=== PATIENT | male | born 1990 | race Caucasian/White ===

== ENCOUNTER 2017-02-18 17:36 | Emergency (ER) | payer BC, SELFPAY ==
[2017-02-18 17:36] VITALS: BMI 22.8
[2017-02-18 17:44] VITALS: RESP 16; TEMP 98.3; O2SAT 96
--- NOTE | 2017-02-18 18:10 | ED PDOC ---
Arrival/HPI - General Historian: Patient - History of Present Illness Time/Duration: < week Symptom Onset: Sudden Symptom Course: Unchanged Quality: Other (vision change ) Severity Level: Moderate Activities at Onset: Rest Context: Home <Candace Urias - Last Filed: 02/18/17 20:23> <Yohana Dsouza - Last Filed: 02/18/17 20:47> - General Chief Complaint: Eye Problem Time Seen by Provider: 02/18/17 17:45 - History of Present Illness Narrative History of Present Illness (Text): 02/18/17 18:06 This is a 26Y M with no significant PMH here for L blurry vision x 4 days. Patient reports he had sudden blurry vision on Thursday. He denies any fever, chills, numbness/tingling, n/v/d, CP or SOB. He denies having any trauma. He saw the plastic hospital products assembler, Dr. Harley today. The patient reports the doctor said the patient should follow up with a neurologist and did not find anything on his eye exam. Patient has an appointment with neurologist Dr. Lopez tomorrow. 02/18/17 18:10 (Candace Urias) Past Medical History - Provider Review Nursing Documentation Reviewed: Yes - Past History Past History: No Previous - Tetanus Immunization Tetanus Immunization: Unknown - Psychiatric Hx Psychophysiologic Disorder: No Hx Depression: No Hx Emotional Abuse: No Hx Physical Abuse: No Hx Substance Use: No - Surgical History Hx Orthopedic Surgery: Yes (R WRIST) - Suicidal Assessment Feels Threatened In Home Enviroment: No <Candace Urias - Last Filed: 02/18/17 20:23> Family/Social History - Physician Review Nursing Documentation Reviewed: Yes Family/Social History: Other (Guillian Fl[place]) Smoking Status: Never Smoked Hx Alcohol Use: Yes Frequency of alcohol use: Socially Hx Substance Use: No <Candace Urias - Last Filed: 02/18/17 20:23> Allergies/Home Meds <Candace Urias - Last Filed: 02/18/17 20:23> <Yohana Dsouza - Last Filed: 02/18/17 20:47> Allergies/Adverse Reactions: Allergies No Known Allergies Allergy (Verified 02/18/17 17:37) Home Medications: Home Meds Medication Instructions Recorded Confirmed No Known Home Med 02/18/17 02/18/17 Review of Systems - Physician Review All systems were reviewed & negative as marked: Yes - Review of Systems Constitutional: Normal. absent: Fevers, Night Sweats Eyes: Vision Changes ENT: Normal. absent: Hearing Changes, Tinnitus, Rhinorrhea Respiratory: Normal. absent: SOB, Cough Cardiovascular: Normal. absent: Chest Pain, Palpitations Gastrointestinal: Normal. absent: Abdominal Pain, Constipation, Diarrhea, Nausea, Vomiting Musculoskeletal: Normal. absent: Arthralgias, Back Pain Skin: Normal. absent: Rash, Pruritis, Skin Lesions Neurological: Normal. absent: Headache, Dizziness, Focal Weakness, Speech Changes, Facial Droop, Seizure Endocrine: Normal. absent: Diaphoresis, Polyuria Psychiatric: Normal. absent: Anxiety, Depression <Candace Urias - Last Filed: 02/18/17 20:23> Physical Exam Vital Signs Reviewed: Yes Temperature: Afebrile Blood Pressure: Normal Pulse: Regular Respiratory Rate: Normal Appearance: Positive for: Well-Appearing, Non-Toxic, Comfortable Pain Distress: None Mental Status: Positive for: Alert and Oriented X 3 - Systems Exam Head: Present: Atraumatic, Normocephalic Pupils: Present: PERRL Extroacular Muscles: Present: EOMI Conjunctiva: Present: Normal Mouth: Present: Moist Mucous Membranes Neck: Present: Normal Range of Motion Respiratory/Chest: Present: Clear to Auscultation, Good Air Exchange. No: Respiratory Distress, Accessory Muscle Use Cardiovascular: Present: Regular Rate and Rhythm, Normal S1, S2. No: Murmurs Abdomen: Present: Normal Bowel Sounds. No: Tenderness, Distention, Peritoneal Signs Upper Extremity: Present: Normal Inspection. No: Cyanosis, Edema Lower Extremity: Present: Normal Inspection. No: Edema Neurological: Present: GCS=15, CN II-XII Intact, Speech Normal, Motor Func Grossly Intact, Normal Sensory Function Skin: Present: Warm, Dry, Normal Color. No: Rashes Psychiatric: Present: Alert, Oriented x 3, Normal Insight, Normal Concentration <Candace Urias - Last Filed: 02/18/17 20:23> <Yohana Dsouza - Last Filed: 02/18/17 20:47> Vital Signs Temp Pulse Resp BP Pulse Ox 02/18/17 20:35 80 16 110/65 96 02/18/17 17:37 98.3 F 84 16 105/68 96 Medical Decision Making Re-evaluation Time: 20:39 Reassessment Condition: Unchanged - RAD Interpretation Fine Artist: Radiologist <Candace Urias - Last Filed: 02/18/17 20:23> <Yohana Dsouza - Last Filed: 02/18/17 20:47> ED Course and Treatment: 02/18/17 18:15 Impression: This is a 26Y M with no PMH here for sudden L eye blurry vision x 4 days. Patient saw plastic hospital products assembler, Dr. Pickens today who referred patient to neurologist, Dr. Lopez. DDX: Multiple sclerosis, Stroke, pituitary lesion Plan: -- MRI brain --Reassess Progress Note: Spoke with Dr. Pickens who reports patient has visual acuity of 20/20 on R and 40/20 on L. He saw no acute abnormalities on the eye exam and believes it can be a possible pituitary lesion. MRI showed white matter changes which suggests multiple sclerosis. Spoke with Dr. Lopez who would like patient to follow up with him for his scheduled appointment tomorrow. Prior Visits: Notes and results from previous visits were reviewed. Discharge Instructions: Re-evaluation. Patient feels better. Discussed results and plan with patient who expresses understanding. All questions answered and there is agreement with the plan to discharge home with instructions. Patient stable for discharge. Return if symptoms persist or worsen. (Candace Urias) A 26 year old male with blurry vision in left eye. In agreement with resident note, which includes further HPI details. Patient was seen and evaluated with resident, came up with plan and treatment together. 02/18/17 20:45 Patient was already seen by Dr. Pickens, who discussed the case with neurology , Dr. Lopez and has an appt tomorrow. Patient came to the ED out of concern; remainder of neuro exam was normal. MRI of the brain done showing demyelinating process. Resident discussed case with Dr. Lopez who said to have him follow up with him tomorrow and to hold on admission for possible high dose iv steroids for possible MS. (Yohana Dsouza) - RAD Interpretation Narrative RAD Interpretations (Text): 02/18/17 20:41 EXAM: MR Head Without Intravenous Contrast CLINICAL HISTORY: 26 years old, male; Signs and symptoms; Visual disturbance; Patient HX: No trauma. Blurry vision in left eye x almost 1 week. R/O ms. ; Additional info: Blurry vision, R/O ms TECHNIQUE: Magnetic resonance images of the head/brain without intravenous contrast in multiple planes. COMPARISON: No relevant prior studies available. FINDINGS: Brain: Innumerable bilateral supratentorial white matter lesions including foci in a corpus callosum, midbrain, daniela, brachium pontis, medulla, superior cerebellar peduncles and cerebellar white matter somewhat fluidlike areas of abnormal signal in the temporal parietal occipital white matter bilaterally. Many of the lesions are low in signal on T1-weighted images. No acute hemorrhage. No acute infarct. Normal major arterial intracranial flow voids. Ventricles: No hydrocephalus. Bones/joints: Unremarkable. Sinuses: Unremarkable as visualized. No acute sinusitis. Mastoid air cells: Unremarkable as visualized. No mastoid effusion. Orbits: Possible elevated T2 signal within the left optic nerve. IMPRESSION: Extensive white matter signal abnormalities compatible with a demyelinating process including but not limited to multiple sclerosis. (Candace Urias) Radiology Orders: 02/18/17 17:49 BRAIN WITHOUT CONTRAST [MRI] Stat <Candace Urias - Last Filed: 02/18/17 20:23> - PA / [employer] / Resident Statement / has reviewed & agrees with the documentation as recorded. / has examined the patient and agrees with the treatment plan. - Scribe Statement The provider has reviewed the documentation as recorded by the Scribe <Yohana Dsouza - Last Filed: 02/18/17 20:47> - Scribe Statement Lachelle Valentino Provider Scribe Attestation: All medical record entries made by the Scribe were at my direction and personally dictated by me. I have reviewed the chart and agree that the record accurately reflects my personal performance of the history, physical exam, medical decision making, and the department course for this patient. I have also personally directed, reviewed, and agree with the discharge instructions and disposition. (Yohana Dsouza) Disposition/Present on Arrival - Present on Arrival Any Indicators Present on Arrival: No History of DVT/PE: No History of Uncontrolled Diabetes: No Urinary Catheter: No History of Decub. Ulcer: No History Surgical Site Infection Following: None - Disposition Have Diagnosis and Disposition been Completed?: Yes Disposition Time: 20:23 Patient Plan: Discharge <Suman Uriasystal - Last Filed: 02/18/17 20:23> <LiannaYohana - Last Filed: 02/18/17 20:47> - Disposition Diagnosis: Demyelinating changes in brain, Vision blurred Disposition: HOME/ ROUTINE Condition: FAIR Print Language: MALAYSIAN Additional Instructions: Mr. Guerrero, thank you for letting us take care of you today. Your provider was Dr. Urias. You were treated for vision changes. The emergency medical care you received today was directed at your acute symptoms. If you were prescribed any medication, please fill it and take as directed. It may take several days for your symptoms to resolve. Return to the Emergency Department if your symptoms worsen, do not improve, or if you have any other problems. Please contact your doctor or call one of the physicians/clinics you have been referred to that are listed on the Patient Visit Information form that is included in your discharge packet. Bring any paperwork you were given at discharge with you along with any medications you are taking to your follow up visit. Our treatment cannot replace ongoing medical care by a primary care provider (PCP) outside of the emergency department. Thank you for allowing the [facility] [employer] team to be part of your care today. If you had an X-Ray or CT scan: A Radiologist will review the ED reading if any change in treatment is needed we will contact you. Please follow up with Dr. Lopez tomorrow at 12:30pm. Please follow up with primary care doctor in 1 week. Referrals: Silviano Lopez MD [Staff Provider] - Follow up with primary Regis Pickens MD [Staff Provider] - Follow up with primary [facility] [Outside] - Follow up with primary [facility] [Outside] - Follow up with primary Forms: WORK NOTE
[2017-02-18 20:36] VITALS: BP 110/65; PULSE 80
--- NOTE | 2017-02-19 07:51 | MRI ---
PROCEDURE: MRI BRAIN WITHOUT CONTRAST HISTORY: blurry vision, r/o MS COMPARISON: None. TECHNIQUE: Multiplanar, multisequence MR images of the brain were obtained without intravenous contrast enhancement. FINDINGS: HEMORRHAGE: None DWI: No evidence of an acute or early subacute infarction. BRAIN PARENCHYMA: No mass effect or edema. Innumerable bilateral supratentorial white matter lesions involving the corpus callosum, midbrain, daniela, brachium pontis, medulla and superior cerebellar peduncles cerebellar white matter, as well as abnormal signal in the temporal parietal and occipital white matter bilaterally. VENTRICLES: Unremarkable. No hydrocephalus. CRANIUM: Unremarkable. ORBITS: Grossly unremarkable. PARANASAL SINUSES/MASTOIDS: Clear VASCULAR SYSTEM: Skull base flow voids intact. OTHER FINDINGS: None. IMPRESSION: Extensive white matter signal abnormalities compatible with demyelinating process including but not limited to multiple sclerosis
== END 2017-02-18 20:37 | disposition home or self-care (01) ==
LOC: ED 17:36
DX: H53.8 Other visual disturbances (principal); G93.89 Other specified disorders of brain

== ENCOUNTER 2017-02-21 01:36 | Emergency (ER) | payer BC ==
[2017-02-21 01:45] VITALS: BMI 23.4
[2017-02-21 01:49] VITALS: BP 142/84; PULSE 90; TEMP 97.6
--- NOTE | 2017-02-21 02:23 | ED PDOC ---
Arrival/HPI - General Chief Complaint: Medical Clearance Time Seen by Provider: 02/21/17 01:43 Historian: Patient - History of Present Illness Narrative History of Present Illness (Text): 02/21/17 02:10 A 26 year old male, whose past medical history includes MS, presents to the emergency department complaining of hiccups lasting about 2 hours. Patient reports no modifying factors. Patient notes hiccups stopped for about 15 minutes , but then developed again. Patient does not currently have the hiccups and notes never hiccups like this in the past. Patient was recently diagnosed with MS by neurologist Dr. Lopez. Patient was given IV steroid treatment on and second treatment yesterday. Patient reported blurry vision on Thursday but notes some improvement. Patient denies any other complaints at this time. Time/Duration: 4-6 hours Symptom Onset: Sudden Symptom Course: Improving Activities at Onset: Rest Modifying Factors (Text): none Context: Home Past Medical History - Provider Review Nursing Documentation Reviewed: Yes - Past History Past History: No Previous - Tetanus Immunization Tetanus Immunization: Unknown - Cardiac Hx Cardiac Disorders: No - Pulmonary Hx Respiratory Disorders: No - Neurological Hx Multiple Sclerosis: Yes - HEENT Hx HEENT Disorder: No - Renal Hx Renal Disorder: No - Endocrine/Metabolic Hx Endocrine Disorders: No - Hematological/Oncological Hx Blood Disorders: No - Integumentary Hx Dermatological Disorder: No - Musculoskeletal/Rheumatological Hx Musculoskeletal Disorders: No - Gastrointestinal Hx Gastrointestinal Disorders: No - Genitourinary/Gynecological Hx Genitourinary Disorders: No - Psychiatric Hx Psychophysiologic Disorder: No Hx Depression: No Hx Emotional Abuse: No Hx Physical Abuse: No Hx Substance Use: No - Surgical History Hx Orthopedic Surgery: Yes (R WRIST) - Anesthesia Hx Anesthesia: No - Suicidal Assessment Feels Threatened In Home Enviroment: No Family/Social History - Physician Review Nursing Documentation Reviewed: Yes Family/Social History: No Known Family HX Smoking Status: Never Smoked Hx Alcohol Use: Yes Hx Substance Use: No Allergies/Home Meds Allergies/Adverse Reactions: Allergies No Known Allergies Allergy (Verified 02/21/17 01:45) Home Medications: Home Meds Medication Instructions Recorded Confirmed No Known Home Med 02/18/17 02/18/17 Review of Systems - Physician Review All systems were reviewed & negative as marked: Yes - Review of Systems Constitutional: Other (hiccups). absent: Fevers Respiratory: absent: SOB Cardiovascular: absent: Chest Pain Musculoskeletal: absent: Back Pain, Neck Pain Physical Exam - Physical Exam Narrative Physical Exam (Text): 02/21/17 03:19 Constitutional: No acute distress. Head: Normocephalic. Atraumatic. Eyes: PERRL. ENT: Moist mucous membranes. Neck: Supple. Cardiovascular: Regular rate. Chest: No tenderness. Respiratory: Clear to auscultation bilaterally. GI: Soft. Nontender. Nondistended. Back: No CVA tenderness. Musculoskeletal: No tenderness or swelling of extremities. Skin: No rash. Neurologic: Alert, no focal deficit. Vital Signs Reviewed: Yes Vital Signs Temp Pulse Resp BP Pulse Ox 02/21/17 02:29 16 98 02/21/17 01:47 97.6 F 90 17 142/84 100 Temperature: Afebrile Blood Pressure: Normal Pulse: Regular Respiratory Rate: Normal Appearance: Positive for: Well-Appearing, Non-Toxic, Comfortable Pain Distress: None Mental Status: Positive for: Alert and Oriented X 3 Medical Decision Making ED Course and Treatment: 02/21/17 02:30 Impression: A 26 year old male with hiccups. Plan: -- Reassess and disposition Prior Visits: Notes and results from previous visits were reviewed. Progress Notes: On re-evaluation, patient feels better and is in no acute distress. I have discussed the results and plan with the patient, who expresses understanding. Patient in agreement with plan to be discharged home. Patient is stable for discharge. Patient was instructed to follow up with physician and neurologist or return if symptoms worsen or new concerning symptoms arise. - Scribe Statement The provider has reviewed the documentation as recorded by the Pili Barber Provider Scribe Attestation: All medical record entries made by the Pili were at my direction and personally dictated by me. I have reviewed the chart and agree that the record accurately reflects my personal performance of the history, physical exam, medical decision making, and the department course for this patient. I have also personally directed, reviewed, and agree with the discharge instructions and disposition. Disposition/Present on Arrival - Present on Arrival Any Indicators Present on Arrival: No History of DVT/PE: No History of Uncontrolled Diabetes: No Urinary Catheter: No History of Decub. Ulcer: No History Surgical Site Infection Following: None - Disposition Have Diagnosis and Disposition been Completed?: Yes Diagnosis: Hiccups Disposition: HOME/ ROUTINE Disposition Time: 02:23 Patient Plan: Discharge Condition: STABLE Discharge Instructions (ExitCare): [place] (ED)
[2017-02-21 02:30] VITALS: RESP 16; O2SAT 98
== END 2017-02-21 02:30 | disposition home or self-care (01) ==
LOC: ED 01:36
DX: R06.6 Hiccough (principal); G35 Multiple sclerosis